=== PATIENT | male | born 1980 | race Caucasian/White ===

== ENCOUNTER 2020-12-30 08:14 | Outpatient (CLI) | payer OTHER, SELFPAY ==
[2020-12-30 08:56] LABS: Alanine Aminotransferase 22 U/L (4-50); Albumin Level 4.5 g/dL (3.5-5.1); Alkaline Phosphatase 43 U/L (38-126); Anion Gap 6 mmol/L (8-16); Aspartate Amino Transferase 23 U/L (17-59); Bilirubin,Total 0.6 mg/dL (0.2-1.3); Blood Urea Nitrogen 16 mg/dL (9-20); Calcium 9.3 mg/dL (8.4-10.2); Carbon Dioxide 31 mmol/L (22-30); Chloride 104 mmol/L (98-107); Cholesterol 185 mg/dL (0-200); Estimated Glomerular Filt Rate > 60; Glucose 95 mg/dL (75-110); HDL Direct 46 mg/dL; Potassium 4.1 mmol/L (3.4-5.0); Sodium 141 mmol/L (137-145); Triglycerides 137 mg/dL (<150)
[2020-12-30 09:05] LABS: LDL Cholesterol Direct 112 mg/dL
== END 2020-12-30 08:15 | disposition home or self-care (01) ==
PROVIDERS: PCP Internal Medicine; Visit Provider Internal Medicine
DX: R79.89 Other specified abnormal findings of blood chemistry (principal); Z13.220 Encounter for screening for lipoid disorders; I10 Essential (primary) hypertension
CPT/HCPCS: 36415; 80053; 80061

== ENCOUNTER 2021-07-21 07:51 | Outpatient (CLI) | payer OTHER, SELFPAY ==
[2021-07-21 08:39] LABS: Anion Gap 7 mmol/L (8-16); Blood Urea Nitrogen 15 mg/dL (9-20); Carbon Dioxide 27 mmol/L (22-30); Chloride 106 mmol/L (98-107); Cholesterol 207 mg/dL (0-200); Estimated Glomerular Filt Rate > 60; Glucose 105 mg/dL (65-110); HDL Direct 51 mg/dL; Potassium 4.6 mmol/L (3.4-5.0); Sodium 140 mmol/L (137-145); Triglycerides 142 mg/dL (<150); Uric Acid 7.4 mg/dL (3.5-8.5)
[2021-07-21 08:44] LABS: LDL Cholesterol Direct 123 mg/dL
== END 2021-07-21 07:52 | disposition home or self-care (01) ==
LOC: ANHLAB 07:53
PROVIDERS: PCP Internal Medicine; Visit Provider Nurse Practitioner
DX: I10 Essential (primary) hypertension (principal); Z13.220 Encounter for screening for lipoid disorders; Z87.39 Personal history of other diseases of the musculoskeletal system and connective tissue
CPT/HCPCS: 36415; 80048; 80061; 84550

== ENCOUNTER 2021-09-25 09:08 | Outpatient (CLI) | payer OTHER, SELFPAY ==
--- NOTE | 2021-09-25 11:00 | NEURO_ITS ---
Impression: # Complains of numbness of lower extremities. # Normal nerve conduction study. # Normal needle/EMG exam. # Clinical correlation recommended. Nerve Conduction Studies Anti Sensory Summary Table Stim Site NR Peak (ms) P-T Amp (?V) Site1 Site2 Delta-P (ms) Dist (cm) Kang (m/s) Left Sup Fibular Anti Sensory (Ant Lat Mall) 14 cm 3.0 20.0 14 cm Ant Lat Mall 3.0 16.0 53 Right Sup Fibular Anti Sensory (Ant Lat Mall) 14 cm 3.4 13.5 14 cm Ant Lat Mall 3.4 16.0 47 Left Sural Anti Sensory (Lat Mall) Calf 3.5 23.7 Calf Lat Mall 3.5 16.0 46 Right Sural Anti Sensory (Lat Mall) Calf 3.9 15.9 Calf Lat Mall 3.9 16.0 41 Motor Summary Table Stim Site NR Onset (ms) O-P Amp (mV) Site1 Site2 Delta-0 (ms) Dist (cm) Kang (m/s) Left Peroneal Motor (Vastus Med) Ankle 4.4 3.0 Popit Ankle 9.4 45.0 48 Popit 13.8 2.9 Right Peroneal Motor (Vastus Med) Ankle 3.8 3.8 Popit Ankle 8.2 38.0 46 Popit 12.0 3.3 Left Tibial Motor (Abd Munoz Brev) Ankle 4.4 5.5 Knee Ankle 10.1 46.0 46 Knee 14.5 4.5 Right Tibial Motor (Abd Munoz Brev) Ankle 4.4 4.6 Knee Ankle 8.9 44.0 49 Knee 13.3 2.4 F Wave Studies NR F-Lat (ms) L-R F-Lat (ms) Left Peroneal (Mrkrs) (EDB) 54.15 0.37 Right Peroneal (Mrkrs) (EDB) 53.78 0.37 Left Tibial (Mrkrs) (Abd Hallucis) 53.37 0.71 Right Tibial (Mrkrs) (Abd Hallucis) 54.08 0.71 EMG Side Muscle Nerve Root Ins Act Fibs Amp Dur Recrt Comment Right AntTibialis Dp Br Fibular L4-5 Nml Nml Nml Nml Nml Right Gastroc Tibial S1-2 Nml Nml Nml Nml Nml Right Fibularis Long Sup Br Fibular L5-S1 Nml Nml Nml Nml Nml Right Flex Dig Long Tibial L5-S2 Nml Nml Nml Nml Nml Right Ext Dig Brev Dp Br Fibular L5, S1 Nml Nml Nml Nml Nml Left AntTibialis Dp Br Fibular L4-5 Nml Nml Nml Nml Nml Left Gastroc Tibial S1-2 Nml Nml Nml Nml Nml Left Fibularis Long Sup Br Fibular L5-S1 Nml Nml Nml Nml Nml Left Flex Dig Long Tibial L5-S2 Nml Nml Nml Nml Nml Left Ext Dig Brev Dp Br Fibular L5, S1 Nml Nml Nml Nml Nml MTDD
== END 2021-09-25 09:09 | disposition home or self-care (01) ==
LOC: ANHNEURO 09:09
PROVIDERS: PCP Internal Medicine; Visit Provider Internal Medicine
DX: R20.2 Paresthesia of skin (principal)
CPT/HCPCS: 95886; 95910

== ENCOUNTER 2021-10-10 15:36 | Emergency (ER) | payer OTHER, SELFPAY ==
--- NOTE | ~2021-10-10 | CT_ITS ---
EXAMINATION: CT abdomen pelvis w con INDICATION: Left flank pain TECHNIQUE: Computed tomographic images of the abdomen and pelvis were obtained after the administrati on of 100 cc of Omnipaque 350 intravenous contrast. The dose-length product (DLP) was 1687.29 mGy-cm. Automated exposure control and iterative reconstruction technique were employed. COMPARISON: 11/06/2018 FINDINGS: Minimal dependent atelectasis is present in the lung bases. The heart size is normal. Surgi sha changes in the stomach likely reflect gastric sleeve surgery. The gallbladder is surgically absen t. The liver, spleen, pancreas, and adrenal glands are normal. There is a nonobstructing 1 mm stone o f the right kidney lower pole. A 5 mm fat attenuation lesion of the left kidney lower pole is consist ent with an angiomyolipoma. No pathologically enlarged abdominal or pelvic lymph nodes are identified . There is no free intraperitoneal gas or evidence of bowel obstruction. The appendix is normal. Ther e are bilateral inguinal hernias containing fat. There is mild lumbar spondylosis. IMPRESSION: 1. No CT correlate for the patient's symptoms. Reviewed, dictated and finalized at location F. RGLASS TECHNICIAN
[2021-10-10 15:38] VITALS: BP 148/112; PULSE 81; RESP 18; TEMP 36.9; O2SAT 100
[2021-10-10 18:04] VITALS: BP 146/90; PULSE 78; RESP 20; O2SAT 99
[2021-10-10] MEDS: ONDANSETRON INJ 4 MG/2 ML VIAL IV PUSH (18:33)
[2021-10-10] MEDS: SODIUM CHLORIDE 0.9% IV 1,000 ML 999 ML IV CONT (18:33)
[2021-10-10 18:44] LABS: Basophils Percent Auto 0.5 % (0.2-1.2); Eosinophils Absolute Auto 0.1 K/mm3 (0-0.3); Eosinophils Percent Auto 1.6 % (0-4.4); Hematocrit 47.7 % (42.0-52.0); Hemoglobin 15.9 g/dL (14.0-18.0); Immature Granulocyte Absolute 0.01 K/mm3 (0.00-0.031); Immature Granulocyte Percent A 0.1 % (0-0.5); Lymphocytes Absolute Auto 3.97 K/mm3 (0.9-3.2); Lymphocytes Percent Auto 46.2 % (18.3-44.2); Mean Corpuscular HGB Conc 33.3 g/dl (32-36); Mean Corpuscular Hemoglobin 29.1 pg (26-34); Mean Corpuscular Volume 87.4 fl (80-100); Mean Platelet Volume 8.8 fl (7.4-10.4); Monocytes Absolute Auto 0.6 K/mm3 (0.1-0.6); Monocytes Percent Auto 7.4 % (2.6-8.5); Neutrophils Absolute Auto 3.8 K/mm3 (1.3-6.7); Neutrophils Percent Auto 44.2 % (45.5-73.1); Platelet Count Result 285 k/mm3 (150-375); Red Blood Count 5.46 M/mm3 (4.6-6.20); Red Cell Distribution Width 12.3 % (11.5-14.5); White Blood Count 8.6 K/mm3 (4.5-10.0)
[2021-10-10 18:46] LABS: Add Urine Microscopic? NO; Appearance Urine Clear (Clear); Bilirubin Urine Negative (Negative); Blood Urine Negative (Negative); Color Urine Yellow (Yellow); Glucose Urine UA Negative (Negative); Ketones Urine Negative (Negative); Leukocyte Esterase Ur Negative LEU/UL (Negative); Nitrate Urine Negative (Negative); Protein Urine Negative (Negative); Specific Grav Ur 1.016 (1.001-1.035); Urobilinogen Urine Negative mg/dL (<2.0)
[2021-10-10 18:58] LABS: Alanine Aminotransferase 24 U/L (4-50); Albumin Level 4.6 g/dL (3.5-5.1); Alkaline Phosphatase 45 U/L (38-126); Anion Gap 11 mmol/L (8-16); Aspartate Amino Transferase 27 U/L (17-59); Bilirubin,Total 0.7 mg/dL (0.2-1.3); Blood Urea Nitrogen 15 mg/dL (9-20); Calcium 9.6 mg/dL (8.4-10.2); Carbon Dioxide 27 mmol/L (22-30); Chloride 102 mmol/L (98-107); Estimated Glomerular Filt Rate > 60; Glucose 97 mg/dL (65-110); Lipase 137 U/L (23-300); Potassium 4.4 mmol/L (3.4-5.0); Sodium 140 mmol/L (137-145)
[2021-10-10 19:17] LABS: Lactic Acid Reflex 0.9 mmol/L (0.7-2.1)
--- NOTE | 2021-10-10 19:46 | ED.GENADULT ---
HPI - General Adult General Chief complaint: Back Pain/Injury Stated complaint: back and abd pain Time Seen by Provider: 10/10/21 18:15 History of Present Illness HPI narrative: Patient 41-year-old gentleman who presents the emergency department with chief complaint of left flank pain. Patient reports that he has been having an aching pain in his left flank that radiates to his left lower quadrant. The patient states that its not improved by anything denies vomiting denies diarrhea denies blood in his stool patient reports he talked to his brother who recommended that he come to the emergency department for evaluation. Related Data Home Medications Medication Instructions Recorded Confirmed colchicine 0.6 mg tablet 0.6 mg PO DAILY PRN 01/06/21 07/28/21 Allergies Allergy/AdvReac Type Severity Reaction Status Date / Time No Known Allergies Allergy Verified 10/10/21 15:38 Review of Systems Review of Systems: A 10 system review of systems was completed on the patient and is negative except for what is stated in the HPI. Nursing and ancillary documentation was reviewed. [facility] Past Medical History Medical History Calculus of gallbladder with acute cholecystitis without obstruction Dizziness Elevated LFTs Headache Hx of gout Injury of right elbow Injury of right shoulder Migraine Numbness Painful joint Vision changes Family History Family History Mother Lupus Sibling Asthma Hypertension Grandparent Pancreatic adenoma Social History Social History Smoking status: Never smoker Second hand tobacco smoke exposure: No Alcohol intake: current Alcohol use details: Social Substance use: never Substance use type: does not use Exam Narrative: GENERAL: Well-appearing, well-nourished, and in no acute distress. HEAD: Normocephalic, atraumatic. EYES: PERRLA and EOMI. ENT: Nares clear, no rhinorrhea or epistaxis. Mucous membranes moist. NECK: Supple. CHEST: Clear to auscultation. No respiratory distress. HEART: Regular rate and rhythm. No murmur heard. Normal peripheral pulses. ABDOMEN: Soft, nontender, nondistended, normal active bowel sounds. EXTREMITIES: Normal range of motion. No edema. SKIN: Warm, dry, no rash. NEURO: No focal deficits. Alert and oriented x3. PSYCH: Normal mood and affect. Course Vital Signs Vital signs: Vital Signs Temperature 36.9 C 10/10/21 15:38 Pulse Rate 81 10/10/21 15:38 Respiratory Rate 18 10/10/21 15:38 Blood Pressure 148/112 H 10/10/21 15:38 Pulse Oximetry 100 10/10/21 15:38 Temperature 36.9 C 10/10/21 15:38 Pulse Rate 78 10/10/21 18:04 Respiratory Rate 20 10/10/21 18:04 Blood Pressure 146/90 H 10/10/21 18:04 Pulse Oximetry 99 10/10/21 18:04 Medical Decision Making Vital Signs Vital Signs: Vital Signs Temperature 36.9 C 10/10/21 15:38 Pulse Rate 81 10/10/21 15:38 Respiratory Rate 18 10/10/21 15:38 Blood Pressure 148/112 H 10/10/21 15:38 Pulse Oximetry 100 10/10/21 15:38 Temperature 36.9 C 10/10/21 15:38 Pulse Rate 78 10/10/21 18:04 Respiratory Rate 20 10/10/21 18:04 Blood Pressure 146/90 H 10/10/21 18:04 Pulse Oximetry 99 10/10/21 18:04 Lab Data Result diagrams: 10/10/21 18:36 10/10/21 18:36 Labs: Lab Results 10/10/21 10/10/21 10/10/21 Range/Units 18:36 18:36 18:36 WBC 8.6 (4.5-10.0) K/mm3 RBC 5.46 (4.6-6.20) M/mm3 Hgb 15.9 (14.0-18.0) g/dL Hct 47.7 (42.0-52.0) % MCV 87.4 (80-100) fl MCH 29.1 (26-34) pg MCHC 33.3 (32-36) g/dl RDW 12.3 (11.5-14.5) % Plt Count 285 (150-375) k/mm3 MPV 8.8 (7.4-10.4) fl Immature Gran % (Auto) 0.1 (0-0.5) % Neut % (Auto) 44.2 L (45.5-73.1) % Lymph % (Auto)
[2021-10-10 20:03] VITALS: BP 122/78; PULSE 80; RESP 18; O2SAT 99
== END 2021-10-10 20:04 | disposition home or self-care (01) ==
PROVIDERS: Emergency Provider Emergency Medicine; PCP Internal Medicine
DX: R10.32 Left lower quadrant pain (principal)
CPT/HCPCS: 36415; 74177; 80053; 81003; 83605; 83690; 85025; 96361; 96374; 99284; J2405; J7030; Q9967

== ENCOUNTER 2022-07-23 12:10 | Outpatient (CLI) | payer OTHER, SELFPAY ==
[2022-07-23 12:59] LABS: Alanine Aminotransferase 25 U/L (6-50); Albumin Level 4.3 g/dL (3.5-5.1); Alkaline Phosphatase 41 U/L (38-126); Anion Gap 11 mmol/L (8-16); Aspartate Amino Transferase 27 U/L (17-59); Bilirubin,Total 0.6 mg/dL (0.2-1.3); Blood Urea Nitrogen 19 mg/dL (9-20); Calcium 8.9 mg/dL (8.4-10.2); Carbon Dioxide 27 mmol/L (22-30); Chloride 100 mmol/L (98-107); Cholesterol 189 mg/dL (0-200); Estimated Glomerular Filt Rate > 60; Glucose 92 mg/dL (65-110); HDL Direct 35 mg/dL; Potassium 3.7 mmol/L (3.4-5.0); Sodium 138 mmol/L (137-145); Triglycerides 85 mg/dL (<150); Uric Acid 7.3 mg/dL (3.5-8.5)
[2022-07-23 13:10] LABS: LDL Cholesterol Direct 123 mg/dL
== END 2022-07-23 12:11 | disposition home or self-care (01) ==
LOC: ANHLAB 12:12
PROVIDERS: PCP Internal Medicine; Visit Provider Internal Medicine
DX: E78.5 Hyperlipidemia, unspecified (principal); I10 Essential (primary) hypertension; M10.9 Gout, unspecified
CPT/HCPCS: 36415; 80053; 80061; 84550

== ENCOUNTER 2022-08-06 12:23 | Outpatient (CLI) | payer OTHER, SELFPAY ==
[2022-08-06 12:44] LABS: Basophils Absolute Auto 0.1 K/mm3 (0.0-0.1); Basophils Percent Auto 0.6 % (0.2-1.2); Eosinophils Absolute Auto 0.1 K/mm3 (0-0.3); Eosinophils Percent Auto 1.5 % (0-4.4); Hematocrit 49.5 % (42.0-52.0); Hemoglobin 16.3 g/dL (14.0-18.0); Immature Granulocyte Absolute 0.03 K/mm3 (0.00-0.031); Immature Granulocyte Percent A 0.3 % (0-0.5); Lymphocytes Absolute Auto 3.34 K/mm3 (0.9-3.2); Lymphocytes Percent Auto 34.8 % (18.3-44.2); Mean Corpuscular HGB Conc 32.9 g/dl (32-36); Mean Corpuscular Volume 87.9 fl (80-100); Mean Platelet Volume 8.8 fl (7.4-10.4); Monocytes Absolute Auto 0.9 K/mm3 (0.1-0.6); Monocytes Percent Auto 9.2 % (2.6-8.5); Neutrophils Absolute Auto 5.2 K/mm3 (1.3-6.7); Neutrophils Percent Auto 53.6 % (45.5-73.1); Platelet Count Result 316 k/mm3 (150-375); Red Blood Count 5.63 M/mm3 (4.6-6.20); Red Cell Distribution Width 13.5 % (11.5-14.5); White Blood Count 9.6 K/mm3 (4.5-10.0)
[2022-08-06 12:52] LABS: Appearance Urine Slightly Cloudy (Clear); Bilirubin Urine Negative (Negative); Blood Urine Negative (Negative); Color Urine Yellow (Yellow); Glucose Urine UA Negative (Negative); Ketones Urine Negative (Negative); Leukocyte Esterase Ur Negative LEU/UL (Negative); Nitrate Urine Negative (Negative); Protein Urine Negative (Negative); Specific Grav Ur 1.025 (1.001-1.035); Urobilinogen Urine 0.2 mg/dL (<2.0)
[2022-08-06 13:06] LABS: Add Urine Microscopic? NO
[2022-08-06 13:16] LABS: Erythrocyte Sedimentation Rate 1 mm/hr (0-20)
[2022-08-06 13:33] LABS: Vitamin D 25 Hydroxy 30.1 ng/mL
[2022-08-06 13:48] LABS: Hepatitis B Surface Antigen Negative (Negative)
[2022-08-06 13:54] LABS: HAV RESULT Negative (Negative); Hepatitis B Core IgM Result Negative (Negative)
[2022-08-06 14:05] LABS: Hepatitis C Virus Antibody Negative (Negative)
[2022-08-10 06:26] LABS: HIV DNA PCR (Qual) Not Detected (Not Detected)
== END 2022-08-06 12:24 | disposition home or self-care (01) ==
PROVIDERS: PCP Internal Medicine; Visit Provider Nurse Practitioner
DX: Z01.818 Encounter for other preprocedural examination (principal); E55.9 Vitamin D deficiency, unspecified
CPT/HCPCS: 36415; 80074; 81003; 82306; 85025; 85652; 87535

== ENCOUNTER 2022-10-29 14:52 | Outpatient (CLI) | payer OTHER, SELFPAY ==
[2022-10-29 15:29] LABS: Basophils Absolute Auto 0.1 K/mm3 (0.0-0.1); Basophils Percent Auto 0.5 % (0.2-1.2); Eosinophils Absolute Auto 0.1 K/mm3 (0-0.3); Eosinophils Percent Auto 1.3 % (0-4.4); Hematocrit 51.3 % (42.0-52.0); Hemoglobin 16.6 g/dL (14.0-18.0); Immature Granulocyte Absolute 0.03 K/mm3 (0.00-0.031); Immature Granulocyte Percent A 0.3 % (0-0.5); Lymphocytes Absolute Auto 3.53 K/mm3 (0.9-3.2); Lymphocytes Percent Auto 31.9 % (18.3-44.2); Mean Corpuscular HGB Conc 32.4 g/dl (32-36); Mean Corpuscular Hemoglobin 27.7 pg (26-34); Mean Corpuscular Volume 85.6 fl (80-100); Monocytes Absolute Auto 0.9 K/mm3 (0.1-0.6); Neutrophils Absolute Auto 6.4 K/mm3 (1.3-6.7); Platelet Count Result 308 k/mm3 (150-375); Red Blood Count 5.99 M/mm3 (4.6-6.20); Red Cell Distribution Width 13.1 % (11.5-14.5); White Blood Count 11.1 K/mm3 (4.5-10.0)
[2022-10-29 15:33] LABS: Appearance Urine Clear (Clear); Bilirubin Urine Negative (Negative); Blood Urine Negative (Negative); Color Urine Yellow (Yellow); Glucose Urine UA Negative (Negative); Ketones Urine Negative (Negative); Leukocyte Esterase Ur Negative LEU/UL (NEGATIVE); Nitrate Urine Negative (Negative); Protein Urine Negative (Negative); Urobilinogen Urine 0.2 mg/dL (<2.0)
[2022-10-29 15:34] LABS: Alanine Aminotransferase 29 U/L (6-50); Albumin Level 4.5 g/dL (3.5-5.1); Alkaline Phosphatase 40 U/L (38-126); Anion Gap 6 mmol/L (8-16); Aspartate Amino Transferase 27 U/L (17-59); Bilirubin,Total 0.5 mg/dL (0.2-1.3); Blood Urea Nitrogen 29 mg/dL (9-20); Calcium 8.7 mg/dL (8.4-10.2); Carbon Dioxide 32 mmol/L (22-30); Chloride 103 mmol/L (98-107); Estimated Glomerular Filt Rate > 60; Glucose 94 mg/dL (65-110); Sodium 141 mmol/L (137-145)
[2022-10-29 15:38] LABS: Add Urine Microscopic? NO
== END 2022-10-29 14:53 | disposition home or self-care (01) ==
LOC: ANHLAB 14:54
PROVIDERS: PCP Internal Medicine; Visit Provider Nurse Practitioner Family
DX: R10.9 Unspecified abdominal pain (principal)
CPT/HCPCS: 36415; 80053; 81003; 85025

== ENCOUNTER 2022-11-02 15:52 | Outpatient (CLI) | payer BC, OTHER, SELFPAY ==
--- NOTE | ~2022-11-02 | CT_ITS ---
EXAMINATION: CT abdomen pelvis wo con DATE: 11/02/2022 16:13 INDICATION: Left flank pain TECHNIQUE: Computed tomography (CT) of the abdomen and pelvis was performed without intravenous contr ast. The dose-length product (DLP) was 1367.23 mGy-cm. Automated exposure control and iterative recon struction technique were employed. COMPARISON: 10/10/2021 FINDINGS: Minimal dependent atelectasis is present in the lung bases. The heart size is normal. There are surgical changes in the stomach, likely reflecting gastric sleeve surgery. The gallbladder is junior rgically absent. The liver, spleen, pancreas, and adrenal glands are normal. There is a 2 mm nonobstr ucting stone of the right kidney. There is a stable 5 mm fat attenuation lesion of the left kidney lo wer pole, consistent with an angiomyolipoma. No stones are present in the ureters or bladder. No hydr onephrosis or hydroureter. No pathologically enlarged abdominal or pelvic lymph nodes are identified. No free intraperitoneal gas or evidence of bowel obstruction. There are bilateral fat-containing ing uinal hernias. The appendix is normal. There is mild lumbar spondylosis. IMPRESSION: 1. No CT correlate for the patient's symptoms. Reviewed, dictated and finalized at location B. RELL BLOWER
== END 2022-11-02 15:53 | disposition home or self-care (01) ==
PROVIDERS: PCP Internal Medicine; Visit Provider Nurse Practitioner Family
DX: R10.9 Unspecified abdominal pain (principal)
CPT/HCPCS: 74176

== ENCOUNTER 2023-08-06 08:56 | Outpatient (CLI) | payer BC, OTHER, SELFPAY ==
--- NOTE | 2023-08-06 09:00 | ECG_ITS ---
Measurements Intervals [place] Rate: 74 P: 20 MN: 140 QRS: -10 QRSD: 101 T: -3 QT: 342 QTc: 380 Interpretive Statements SINUS RHYTHM INCOMPLETE RIGHT BUNDLE BRANCH BLOCK VOLTAGE CRITERIA FOR LVH POOR R WAVE PROGRESSION, ANTERIOR LEADS BORDERLINE T WAVE ABNORMALITY- INFERIOR LEADS BASELINE ARTIFACT- I, II, III BORDERLINE ECG NO PREVIOUS ECG AVAILABLE FOR COMPARISON Electronically Signed On 08-06-2023 9:46:58 ROUTE VENDING MACHINE SERVICER by Walker Pepper D.O.
== END 2023-08-06 08:57 | disposition home or self-care (01) ==
LOC: ANHSURGERY 09:02
PROVIDERS: PCP Nurse Practitioner; Visit Provider Surgery
DX: Z01.812 Encounter for preprocedural laboratory examination (principal); Z01.810 Encounter for preprocedural cardiovascular examination; K40.20 Bilateral inguinal hernia, without obstruction or gangrene, not specified as recurrent; I45.10 Unspecified right bundle-branch block
CPT/HCPCS: 36415; 86850; 86900; 86901; 93005

== ENCOUNTER 2023-08-11 03:37 | Day surgery (SDC) | payer BC, OTHER, SELFPAY ==
[2023-08-05 09:25] VITALS: BMI 30.2
--- NOTE | 2023-08-05 09:30 | PC.NURSE ---
Report to the Outpatient Waiting Room, entrance under the green pavilion located off [facility], at time 11:00 on date 08/11/23. Planned Procedure Time: 1:00. Time changes happen often and if your time is changed the preop area will call you the afternoon before. - You and your visitor will be asked to self-screen and do not enter if you have any COVID symptoms. - A mask is optional within the hospital at this time. Patients may have clear liquids (water, carbonated beverages, clear teas, apple juice) until 3 hours prior to surgery (10:00) with a maximum of 20 ounces. - No food from midnight until time of surgery Take the following medications with a SIP of water the morning of surgery: AMLODIPINE DO NOT STOP ANY OF YOUR OTHER PRESCRIPTION MEDICATIONS PRIOR TO SURGERY ?EXCEPT THE FOLLOWING Medications to discontinue per physician: N/A Date to take last dose: N/A Please no make-up, nail armenian, hairspray, perfume, deodorant, or body powder the day of surgery. No jewelry (including any body piercings) or valuables the day of surgery, leave them at home. Please take a shower or bath the night before, or the morning of, surgery with an antibacterial soap. Wear comfortable, loose fitting clothing. - Jewelry must be removed prior to entering the operating room. Rings and piercings that are not removed may be cut off. - The hospital will not accept responsibility for valuables. - Please leave all valuables, including medications, at home the day of surgery. If you are going home after surgery, a licensed local hazmat driver must drive you home. - NO public transportation without another adult if you receive anesthesia. - We recommend that an adult stay with you for 24 hours following discharge. - We also recommend that you do not drive, make important decision, drink alcoholic beverages, or take any drugs that were not prescribed by your health care provider for at least 24 hours after your discharge time. Follow any additional instructions given to you from your surgeon. If you or anyone in your household have experienced Covid symptoms in the past week, please notify your surgeon or the nurse liaison at the phone number below for possible testing. Telephone instructions given to PT - MO CANCINO and asked if any additional questions and then verbalized understanding. Patient advised to call surgeon office or pre surgery nurse liaison [phone] if any additional questions.
--- NOTE | 2023-08-10 12:34 | PM.SD2 ---
Same Day Admit/Disch: HPI History of Present Illness Chief complaint: Left groin pain Narrative: Bakari Chiang is a 43 year old male who started noticing left groin pain back in November or December of this year. This pain is worse when he strains such as having a bowel movement. He noticed also a left groin bulge. He had a CT scan done which showed bilateral fat containing inguinal hernias. I saw him in the office and he does have bilateral inguinal hernias by exam. After discussion, he is taken to surgery now for robotic laparoscopic bilateral inguinal hernia repair. He has a history of previous laparoscopic cholecystectomy. He also has a history of previous laparoscopic gastric banding after which he lost over 100 lb. [facility] Past Medical History Medical History (Updated 08/11/23 @ 12:42 by Carlos Pratt DO) Calculus of gallbladder with acute cholecystitis without obstruction Dizziness Elevated LFTs Headache Hx of gout Hypertension Injury of right elbow Injury of right shoulder Migraine Numbness Painful joint Vision changes Surgical History Surgical History Hx laparoscopic cholecystectomy 2018 [facility] Hx of laparoscopic gastric banding Family History Family History Mother Lupus Sibling Asthma Hypertension Grandparent Pancreatic adenoma Social History Social History Smoking status: Never smoker Second hand tobacco smoke exposure: No Alcohol intake: current Alcohol use details: RARE Substance use: never Substance use type: does not use Lack of Transportation: No Lack of Food: Never True Current Housing: I Have Housing Concerned About Future Housing: No Difficulty Paying Gas/Electric Bills: No Difficulty Paying for Meds: No Currently Unemployed: No Education: Bachelor's Degree Difficulty w/ Childcare or Family Care: No Living arrangements: with family Spiritual care concerns: No Same Day Admit/Disch: Med Pre-admit Medications Home Medications Medication Instructions Recorded Confirmed Type colchicine 0.6 mg tablet 0.6 mg PO DAILY PRN gout 01/06/21 08/05/23 History amlodipine 10 mg tablet 10 mg PO DAILY #90 tabs 10/19/22 08/11/23 Rx ketorolac 10 mg tablet 10 mg PO Q6H 4 days #16 tabs 08/11/23 Rx oxycodone-acetaminophen 5 mg-325 1 - 2 tablet PO Q6H PRN pain #15 08/11/23 Rx mg tablet (Percocet) tabs Review of Systems Review of Systems All systems reviewed & are unremarkable except as noted in HPI and below (HPI) Exam Const: General: comfortable, no acute distress, alert and awake HENMT: Head: normocephalic and atraumatic Mouth: Yes Normal oral and palatal mucosa present Eyes: Conjunctivae: conjunctivae normal Pupils: Equal, round and reactive pupils present EOM: EOMs intact bilaterally Neck: Neck: normal visual inspection, no lymphadenopathy and nontender Resp: Effort & Inspection: normal respiratory effort Auscultation: clear to auscultation bilaterally Cardio: Rate: regular rate Rhythm: regular rhythm Heart sounds: no gallops, no murmurs and no rubs GI: Inspection: non-distended GI Palp: Yes Soft to palpation, No Tenderness to palpation present (GI), No Hepatomegaly present and No Splenomegaly present : Male General Exam: Yes hernia (Left groin bulge, bilateral inguinal hernias, pulse with cough) Penis: Yes normal penis Scrotum: scrotum normal Testes: Testes normal Skin: Lesions: no lesions Rashes: no rashes Neuro: General: no focal motor deficits and CN's II-XI intact bilaterally Cranial nerves: Yes Equal, round and reactive pupils present, Yes Bilaterally intact EOM present, Yes facial symmetry and Yes Midline tongue present Speech: normal speech Motor exam (neuro): 5/5 motor strength present throughout and Motor abnormalities not present Extrem: General: no club
[2023-08-11] VITALS (8 sets, daily range): BP systolic 120–150; BP diastolic 85–99; PULSE 80–94; RESP 15–19; TEMP 36.8; O2SAT 94–100
[2023-08-11] MEDS: ACETAMINOPHEN 500 MG TABLET 1000 MG PO (11:31)
[2023-08-11] MEDS: LACTATED RINGERS 1,000 ML 30 ML IV CONT ×3 (11:40→18:26)
[2023-08-11] MEDS: KETOROLAC 15 MG/ML VIAL (*BKC) IV PUSH (11:42)
--- NOTE | 2023-08-11 12:21 | WPDHPUPDATE1 ---
History and Physical Update Update Date/Time: 08/11/23 12:21 History and Physical has been reviewed, including an updated exam of the patient. There are NO changes in the patient's condition. Risks, benefits, and alternatives have been discussed and questions answered. Patient agrees to proceed with procedure.
--- NOTE | 2023-08-11 12:41 | P.PNAN_ITS ---
Anes - Initial Pre Proc Eval Procedure: Operation Date: 08/11/23 13:00 Proposed Procedures p Robotic Laparoscopic Bilateral Inguinal Hernia Repair with Mesh - Isaiah Mccain MD Date/Time: 08/11/23 12:41 Surgeon: Isaiah Mccain MD Pre Op Diagnosis: Left groin pain Patient Data Age: 43 Gender: M Height: 1.88 m Weight: 111.1 kg Last Vital Signs Temp 36.8 C 08/11/23 11:20 Pulse 80 08/11/23 11:20 Resp 16 08/11/23 11:20 BP 150/99 H 08/11/23 11:20 Pulse Ox 100 08/11/23 11:20 O2 Del Method Room Air 08/11/23 11:20 Allergies Allergy/AdvReac Type Severity Reaction Status Date / Time No Known Allergies Allergy Verified 08/05/23 09:25 Home Medications Medication Instructions Recorded Confirmed Type colchicine 0.6 mg tablet 0.6 mg PO DAILY PRN gout 01/06/21 08/05/23 History amlodipine 10 mg tablet 10 mg PO DAILY #90 tabs 10/19/22 08/11/23 Rx Patient hx anesthesia problems: none Family hx anesthesia problems: none Results Review: All pre-operative results and documents have been reviewed as part of the pre- operative evaluation. [facility] Past Medical History Medical History (Updated 08/11/23 @ 12:42 by Carlos Pratt DO) Calculus of gallbladder with acute cholecystitis without obstruction Dizziness Elevated LFTs Headache Hx of gout Hypertension Injury of right elbow Injury of right shoulder Migraine Numbness Painful joint Vision changes Surgical History Surgical History Hx laparoscopic cholecystectomy 2018 [facility] Hx of laparoscopic gastric banding Family History Family History Mother Lupus Sibling Asthma Hypertension Grandparent Pancreatic adenoma Social History Social History Smoking status: Never smoker Second hand tobacco smoke exposure: No Alcohol intake: current Alcohol use details: RARE Substance use: never Substance use type: does not use Lack of Transportation: No Lack of Food: Never True Current Housing: I Have Housing Concerned About Future Housing: No Difficulty Paying Gas/Electric Bills: No Difficulty Paying for Meds: No Currently Unemployed: No Education: Bachelor's Degree Difficulty w/ Childcare or Family Care: No Living arrangements: with family Spiritual care concerns: No Anes - Eval Final PreProcedure Day of Procedure 08/11/23 12:41 Patient weight: obese Heart: regular rate and rhythm Lungs: clear to auscultation Airway: Mallampati scale class II Neurological: alert and oriented Last oral intake: >/= 8 hours ASA classification: III Emergent: no Anesthetic plan: proceed Anesthesia type and monitoring: general ETT and standard monitoring Results Review: All pre-operative results and documents have been reviewed as part of the pre- operative evaluation. Informed Consent: The patient's anesthetic plan and its attendant risks and benefits were discussed with the patient/family/POA. Questions were solicited and answers provided to the satisfaction of the patient/family/POA.
[2023-08-11] MEDS: ceFAZolin 2 GM/D5W 50 ML 2 GM/50 ML BAG IVPB (13:23)
[2023-08-11] MEDS: BUPIVACAINE/EPINEPHRINE 0.5% 50 ML VIAL 30 ML INFILTRATE (13:54)
[2023-08-11] MEDS: ceFAZolin SODIUM 1 GM VIAL IV PUSH (17:16)
--- NOTE | 2023-08-11 17:49 | W.PM.PROC2 ---
Procedure Note - Detailed Date of Procedure 08/11/23 Pre-op Diagnosis Bilateral inguinal hernias Post-op Diagnosis Same Procedure Performed Robotic laparoscopic repair of bilateral inguinal hernias with mesh Surgeon Isaiah Mccain MD Bus Starter Garret LR, Elysia LR Anesthesia General and Local Indications Patient has a large left inguinal hernia that has been painful with exertion. Exam showed he also has a right inguinal hernia. After discussion, he is taken to surgery now for robotic laparoscopic repair of both inguinal hernias with mesh. Findings The left was a larger hernia. And had a lot of lipomatous tissue in the inguinal canal. It was an indirect hernia. The right side was a smaller hernia, also an indirect hernia. No other significant findings were noted. Description of Procedure Patient was taken to the operating room and induced into general anesthesia. The abdomen was prepped and draped. The 3 trocars anticipated to be placed were marked on the skin above the umbilicus. Local was infiltrated into the area each trocar was to be placed. On the left sided trocar made an incision and introduced the varies needle. Saline drop technique was used to assure intraperitoneal location. We insufflated through this varies needle. After adequate insufflation, I swabbed this for a 5 mm applied Medical optical trocar. The right-sided and midline trocar sites were then placed using local anesthesia and under direct visualization. These were 8 mm robotic trocars. I then moved the camera over to the right-sided trocar. The 5 mm port was changed to an 8 mm robotic port. The camera was then brought into the field. Patient was placed in Trendelenburg. The camera was then docked and targeted. The instrument ports were then docked and positioned close to the suprapubic area near both hernias. The surgeon then broke scrub and went to the robotic console. Starting on the patient's left side, a peritoneal flap was created starting laterally and proceeding medially to the median umbilical ligament. This peritoneal flap was developed in the usual fashion. Medially I dissected directly under the rectus abdominis muscle and down to the pubis and Bruno's ligament. I then continued the dissection laterally and then finally moved to the midportion where the hernia was located. I grasped some fatty tissue and reduced it in the hernia sac. There was additional abundant lipomatous tissue that was dissected and removed. The hernia sac itself was dissected from the inguinal canal. I carefully dissected the hernia sac from the cord structures. This was continued until the cord was dissected completely free from the hernia sac and also the peritoneum was dissected well posterior to the cord. There was at least 4 cm of inguinal canal dissected free posterior to the lower aspect of the indirect hernia. I continued the dissection medially beyond the midline and down to the pubis. I dissected below the pubis and Bruno's ligament about 2 cm. This appeared to be adequate dissection for the left side. I then turned my attention to the right inguinal area. Similarly I started a flap laterally and continued this medially to the median umbilical ligament. I then dissected the flap from the anterior abdominal wall. Medially I dissected down to the pubis and across to the previous area of dissection on the left side. The pubis and Bruno's ligament were well exposed on the right side. I also dissected about 2 cm posterior to the pubis on the right side. Laterally we dissected well below the pectinate line. The hernia on the right side was also indirect. I reduced the hernia and some accompanying fatty tissue. I dissected the hernia sac and the fatty tissue free from the cord vessels and then dissected the sac and the peritoneum well below the internal ring as had been done on the left side. All looked good. I 1st introduced a 17 x 12 left mid Bard 3DMax a
[2023-08-11] MEDS: HYDROmorphone HCL INJ (*CRX) 1 MG/ML SYR 0.25 MG IV PUSH ×2 (18:12→18:20)
[2023-08-11] MEDS: PROPARACAINE HCL 0.5% 15 ML OPHTH SOLN 1 DROP EACH EYE ×2 (19:09→19:56)
--- NOTE | 2023-08-11 19:13 | SUR.PHASEII ---
1900 PT STATES HE FEELS THERE IS SOMETHING IN HIS RIGHT EYE LATERALLY. NO THING NOTED, EYE FLUSHED WITH 100 SALINE. PT STATES NO REFLIEF.
[2023-08-11] MEDS: ONDANSETRON INJ 4 MG/2 ML VIAL IV PUSH (19:25)
[2023-08-11] MEDS: diphenhydrAMINE HCl INJ 50 MG/ML VIAL 25 MG IV PUSH (20:00)
--- NOTE | 2023-08-11 20:29 | SUR.PHASEII ---
[facility] SUPPORT HAS BEEN IN PLACE SINCE ARRIVING FROM THE OR.
== END 2023-08-11 20:35 | disposition home or self-care (01) ==
PROVIDERS: PCP Nurse Practitioner; Visit Provider Surgery
PROC: 8E0Y4CZ Robotic Assisted Procedure of Lower Extremity, Percutaneous Endoscopic Approach (ICD-10-PCS; CPT 49650; principal; 2023-08-11 13:00)
DX: K40.20 Bilateral inguinal hernia, without obstruction or gangrene, not specified as recurrent (principal); I10 Essential (primary) hypertension; E66.9 Obesity, unspecified; Z68.31 Body mass index [BMI] 31.0-31.9, adult; Z79.891 Long term (current) use of opiate analgesic; Z90.49 Acquired absence of other specified parts of digestive tract; Z80.0 Family history of malignant neoplasm of digestive organs
CPT/HCPCS: 49650; S2900; A9270; C1781; J0690; J1170; J1200; J1885; J2250; J2371; J2405; J2704; J3010; J7120

== ENCOUNTER 2023-08-15 05:12 | Emergency (ER) | payer BC, OTHER, SELFPAY ==
[2023-08-15 05:12] VITALS: BP 145/92; PULSE 96; RESP 14; TEMP 36.8; O2SAT 98
--- NOTE | 2023-08-15 05:49 | PC.NURSE ---
Pt approached triage desk and states he no longer want to be seen, states I just needed a prescription refill . Pt ambulated out of ED with steady gait, no obvious distress.
== END 2023-08-15 06:33 | disposition left against medical advice (07) ==
LOC: ANHED 05:52
PROVIDERS: PCP Nurse Practitioner
DX: H57.9 Unspecified disorder of eye and adnexa (principal)
CPT/HCPCS: 99199

== ENCOUNTER 2023-08-15 08:43 | Emergency (ER) | payer BC, OTHER, SELFPAY ==
[2023-08-15 08:56] VITALS: BP 146/99; PULSE 88; RESP 16; TEMP 36.2; O2SAT 100
== END 2023-08-15 09:10 | disposition left against medical advice (07) ==
PROVIDERS: PCP Nurse Practitioner
DX: Z53.21 Procedure and treatment not carried out due to patient leaving prior to being seen by health care provider (principal)
CPT/HCPCS: 99199

== ENCOUNTER 2024-04-03 13:36 | Outpatient (CLI) | payer BC, SELFPAY ==
[2024-04-03 14:07] LABS: Alanine Aminotransferase 24 U/L (6-50); Albumin Level 4.4 g/dL (3.5-5.1); Alkaline Phosphatase 38 U/L (38-126); Anion Gap 7 mmol/L (4-12); Aspartate Amino Transferase 29 U/L (17-59); Bilirubin,Total 0.8 mg/dL (0.2-1.3); Blood Urea Nitrogen 9 mg/dL (9-20); Calcium 8.9 mg/dL (8.4-10.2); Carbon Dioxide 32 mmol/L (22-30); Chloride 101 mmol/L (98-107); Cholesterol 207 mg/dL (0-200); Estimated Glomerular Filt Rate > 60; Glucose 98 mg/dL (65-110); HDL Direct 38 mg/dL; Sodium 140 mmol/L (137-145); Triglycerides 110 mg/dL (<150)
[2024-04-03 14:17] LABS: LDL Cholesterol Direct 145 mg/dL
[2024-04-03 14:38] LABS: Prostate Specific Antigen 0.7 ng/mL (< OR = 4.0); Thyroid Stimulating Hormone 0.989 uIU/mL (0.465-4.680)
== END 2024-04-03 13:37 | disposition home or self-care (01) ==
LOC: ANHLAB 13:38
PROVIDERS: PCP Nurse Practitioner; Visit Provider Nurse Practitioner
DX: Z12.5 Encounter for screening for malignant neoplasm of prostate (principal); E78.5 Hyperlipidemia, unspecified; I10 Essential (primary) hypertension; Z12.31 Encounter for screening mammogram for malignant neoplasm of breast
CPT/HCPCS: 36415; 80053; 80061; 84153; 84443; G0103

== ENCOUNTER 2024-06-27 08:57 | Outpatient (CLI) | payer BC, SELFPAY ==
[2024-06-27 09:25] LABS: Cholesterol 198 mg/dL (0-200); HDL Direct 33 mg/dL; Triglycerides 99 mg/dL (<150)
[2024-06-27 09:36] LABS: LDL Cholesterol Direct 119 mg/dL
== END 2024-06-27 08:58 | disposition home or self-care (01) ==
PROVIDERS: PCP Nurse Practitioner; Visit Provider Nurse Practitioner
DX: E78.5 Hyperlipidemia, unspecified (principal)
CPT/HCPCS: 36415; 80061

== ENCOUNTER 2024-10-11 00:56 | Day surgery (SDC) | payer BC, SELFPAY ==
[2024-09-26 10:47] VITALS: BMI 29.5
[2024-10-11 12:18] VITALS: BP 117/88; PULSE 73; RESP 18; TEMP 36.4; O2SAT 99
--- NOTE | 2024-10-11 12:26 | P.PNAN_ITS ---
Anes - Initial Pre Proc Eval Procedure: Operation Date: 10/11/24 13:30 Proposed Procedures p Screening Colonoscopy - Howard Arias MD Date/Time: 10/11/24 12:26 Surgeon: Howard Arias MD Pre Op Diagnosis: screening for malignant neoplasm of colon Patient Data Age: 44 Gender: M Height: 1.88 m Weight: 99.8 kg Last Vital Signs Temp 36.4 C L 10/11/24 12:18 Pulse 73 10/11/24 12:18 Resp 18 10/11/24 12:18 BP 117/88 10/11/24 12:18 Pulse Ox 99 10/11/24 12:18 O2 Del Method Room Air 10/11/24 12:18 Allergies Allergy/AdvReac Type Severity Reaction Status Date / Time No Known Allergies Allergy Verified 10/11/24 12:17 Home Medications ?Medication ?Instructions ?Recorded ?Confirmed ?Type colchicine 0.6 mg capsule 0.6 mg PO DAILY PRN GOUT 12/31/23 09/26/24 History amlodipine 10 mg tablet 10 mg PO DAILY #90 tabs 09/22/24 10/11/24 Rx losartan 100 mg tablet 100 mg PO DAILY #90 tabs 09/28/24 10/11/24 Rx Patient hx anesthesia problems: none Family hx anesthesia problems: none Results Review: All pre-operative results and documents have been reviewed as part of the pre- operative evaluation. [facility] Past Medical History Medical History Hx of gout Elevated LFTs Hypertension Calculus of gallbladder with acute cholecystitis without obstruction Vision changes Numbness Dizziness Painful joint Injury of right elbow Injury of right shoulder Migraine Headache Surgical History Surgical History Hx of inguinal hernia repair Robotic laparoscopic repair of bilateral inguinal hernias with mesh 08/11/[address] [facility] Hx of laparoscopic gastric banding Hx laparoscopic cholecystectomy 2018 [facility] Family History Family History Mother Lupus Sibling Asthma Hypertension Grandparent Pancreatic adenoma Social History Social History Smoking status: Never smoker Second hand tobacco smoke exposure: No Alcohol intake: current Alcohol use details: a few drinks per month Substance use: never Substance use type: does not use Lack of Transportation: No Lack of Food: Never True Current Housing: I Have Housing Concerned About Future Housing: No Difficulty Paying Gas/Electric Bills: No Difficulty Paying for Meds: No Currently Unemployed: No Education: Bachelor's Degree Difficulty w/ Childcare or Family Care: No Living arrangements: with family Spiritual care concerns: No Anes - Eval Final PreProcedure Day of Procedure 10/11/24 12:26 Patient weight: overweight Heart: regular rate and rhythm Lungs: clear to auscultation Airway: Mallampati scale class II Neurological: alert and oriented Last oral intake: >/= 8 hours ASA classification: III Emergent: no Anesthetic plan: proceed Anesthesia type and monitoring: general GIVS and standard monitoring Results Review: All pre-operative results and documents have been reviewed as part of the pre- operative evaluation. Informed Consent: The patient's anesthetic plan and its attendant risks and benefits were discussed with the patient/family/POA. Questions were solicited and answers provided to the satisfaction of the patient/family/POA.
--- NOTE | 2024-10-11 12:28 | PM.HPGS ---
History of Present Illness History of Present Illness Consent: Risks, benefits, and alternatives have been discussed and questions answered. Patient agrees to proceed with procedure. Chief complaint: screening for malignant neoplasm of colon Narrative: Bakari Chiang is a 44 year old male here for first screening colonoscopy Review of Systems Review of Systems: All systems reviewed & are unremarkable except as noted in HPI and below PMFSH Past Medical History Medical History Hx of gout Elevated LFTs Hypertension Calculus of gallbladder with acute cholecystitis without obstruction Vision changes Numbness Dizziness Painful joint Injury of right elbow Injury of right shoulder Migraine Headache Surgical History Surgical History Hx of inguinal hernia repair Robotic laparoscopic repair of bilateral inguinal hernias with mesh 08/11/23 [facility] Hx of laparoscopic gastric banding Hx laparoscopic cholecystectomy [address] [place] [address] Family History Family History Mother Lupus Sibling Asthma Hypertension Grandparent Pancreatic adenoma Social History Social History Smoking status: Never smoker Second hand tobacco smoke exposure: No Alcohol intake: current Alcohol use details: a few drinks per month Substance use: never Substance use type: does not use Lack of Transportation: No Lack of Food: Never True Current Housing: I Have Housing Concerned About Future Housing: No Difficulty Paying Gas/Electric Bills: No Difficulty Paying for Meds: No Currently Unemployed: No Education: Bachelor's Degree Difficulty w/ Childcare or Family Care: No Living arrangements: with family Spiritual care concerns: No Meds Home Medications and Allergies Home Medications ?Medication ?Instructions ?Recorded ?Confirmed ?Type colchicine 0.6 mg capsule 0.6 mg PO DAILY PRN GOUT 12/31/23 09/26/24 History amlodipine 10 mg tablet 10 mg PO DAILY #90 tabs 09/22/24 10/11/24 Rx losartan 100 mg tablet 100 mg PO DAILY #90 tabs 09/28/24 10/11/24 Rx Allergies Allergy/AdvReac Type Severity Reaction Status Date / Time No Known Allergies Allergy Verified 10/11/24 12:17 Vital Signs Vital Signs - 24 hr 10/11/24 12:18 Temperature 97.5 F L Pulse Rate 73 Respiratory Rate 18 Blood Pressure 117/88 Pulse Oximetry 99 Oxygen Delivery Room Air Exam Const: General: comfortable and no acute distress HENMT: Face/Nose/Sinus: Normal nares present Eyes: General: appearance normal, both eyes and all related structures Neck: Neck: no JVD Resp: Auscultation: clear to auscultation bilaterally Cardio: Rate: regular rate Rhythm: regular rhythm GI: Inspection: non-distended GI Palp: Yes Soft to palpation Skin: General skin exam: normal color Neuro: General: gait normal Speech: normal speech Extrem: General: normal to inspection Psych: Mental Status: mental status grossly normal Assessment and Plan Assessment and plan (1) Screening for colon cancer: Code(s): Z12.11 - Encounter for screening for malignant neoplasm of colon Status: Acute Assessment and Plan: colonoscopy
[2024-10-11] MEDS: LACTATED RINGERS 1,000 ML 150 ML IV CONT (12:32)
[2024-10-11 12:46] VITALS: BP 101/67; PULSE 69; RESP 18; O2SAT 96
[2024-10-11 12:56] VITALS: BP 108/69; PULSE 73; RESP 16; O2SAT 100
[2024-10-11 13:06] VITALS: BP 115/84; PULSE 63; RESP 16; O2SAT 100
--- OUTSIDE RECORDS SUMMARY | 2024-10-12 20:59 | XMS_ITS | Clinical Summary ---
Author Organization [facility] at [facility] Address [address] [place] [address] Care Team Providers Care Meal Temperer Name Role Phone Cheko Chapin DO Primary Care Provider [phone] Allergies No known active allergies Medications amLODIPine (NORVASC) 10 mg tablet 1 tablet (10 mg total) 07/22/2024 Active losartan (COZAAR) 100 mg tablet 1 tablet (100 mg total) 2024 Active Active Problems Problem Noted Date Diagnosed Date Varicose veins of both lower extremities 024 Assessment & Plan (09/27/2024 9:56 AM MARKETING SEGMENT MANAGER): 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 On exam these varicosities are quite large and symptomatic. Risks benefits alternatives to staged left GSV ablation and stab phlebectomies followed by the right lower extremity were discussed. Risks including bleeding, infection, DVT/PE, thermal injury, need further surgery. He wished proceed. Assessment & Plan (08/22/2024 9:51 AM MARKETING SEGMENT MANAGER): Large bulky varicosities bilaterally that are symptomatic and chronic. Patient has been compliant with compression therapy for greater than 3 months without resolution of symptoms. We will have the patient follow-up in the next few weeks with a venous reflux he is absolutely a candidate for phlebectomies we will check to see if he is a candidate for GSV ablation. Primary hypertension 08/22/2024 Assessment & Plan (09/27/2024 9:58 AM MARKETING SEGMENT MANAGER): Stable continue amlodipine Encounters Date Type Department Care Team Description 10/02/2024 Documentation [facility] Medical [facility] Vascular and Vein Surgery [address] [place] [address] [place] [phone] Smitha Wilde, RN 09/29/2024 Orders Only [facility] Vascular and Vein Surgery [address] [place] [phone] Radha Coronado MD Varicose veins of leg with pain, left (Primary Dx); Varicose veins of leg with pain, right; Varicose veins of both lower extremities with pain 09/29/2024 Telephone [facility] Vascular and Vein Surgery [address] [place] [phone] Smitha Wilde, RN 09/27/2024 9:15 AM MARKETING SEGMENT MANAGER Office Visit [facility] Vascular at [address] [place] [phone] Radha Coronado MD Varicose veins of both lower extremities with pain (Primary Dx); Primary hypertension 09/27/2024 Documentation [facility] Vascular and Vein Surgery [address] [place] [phone] Smitha Wilde, RN 09/05/2024 9:00 AM MARKETING SEGMENT MANAGER Ancillary Procedure [facility] Vascular and Vein Surgery at [address] [place] [address] Symptomatic varicose veins, bilateral 08/21/2024 2:15 PM MARKETING SEGMENT MANAGER Office Visit [facility] Vascular and Vein Surgery [address] [place] [phone] Corinna Billy NP Varicose veins of both lower extremities with pain (Primary Dx); Primary hypertension 08/21/2024 Orders Only [facility] Vascular and Vein Surgery [address] [place] [phone] Radha Coronado MD Symptomatic varicose veins, bilateral (Primary Dx) from Last 3 Months Social History Tobacco Use Types Packs/Day Years Used Date Smoking Tobacco: Unknown Tobacco Cessation:Counseling Given: Not Answered Sex and Gender Information Value Date Recorded Sex Assigned at Not on file Legal Sex Male 9:46 AM MARKETING SEGMENT MANAGER Gender Identity Not on file Sexual Orientation Not on file Obstetrics History Last Filed Vital Signs Vital Sign Reading Time Taken Comments Blood Pressure 118/85 09/27/2024 9:22 AM MARKETING SEGMENT MANAGER Pulse 77 09/27/2024 9:22 AM MARKETING SEGMENT MANAGER Temperature - - Respiratory Rate - - Oxygen Saturation 98% 09/27/2024 9:22 AM MARKETING SEGMENT MANAGER Inhaled Oxygen Concentration - - Weight 102.1 kg (225 lb) 09/27/2024 9:22 AM MARKETING SEGMENT MANAGER Height 188 cm (6' 2 ) 09/27/2024 9:22 AM MARKETING SEGMENT MANAGER Body Mass Index 28.89 09/27/2024 9:22 AM MARKETING SEGMENT MANAGER Plan of Treatment Health Maintenance Due Date Last Done Comments Colon Cancer Screening-Colonoscopy 1978 Depression Screening 1978 Hepatitis C Screening 1978 DTaP/Tdap/Td Vaccine (1 - Tdap) 1989 Hepatitis B Screening 1996 Regular Well Visit/Exam 18-64 1996 Covid-19 Vaccine (3 - 2023-2 5 season) 2024 11/05/2021, 10/15/2021 Influenza Vaccine (#1) 2024 HPV Vaccines Aged Out No longer eligi ble based on patient's age to complete this topic Pneumococcal vaccine <65 Aged Out No longer eligible based on patient's age to complete this topic Procedures Procedure Name Priority Date/Time Associated Diagnosis Comments US VENOUS REFLUX BILATERAL Routine 09/05/2024 10:58 AM MARKETING SEGMENT MANAGER Symptomatic varicose veins, bilateral from Last 3 Months Results * US Venous Reflux Bilateral (09/05/2024 10:58 AM MARKETING SEGMENT MANAGER) Anatomical Region Laterality Modality Vascular Bilateral Ultrasound 09/05/2024 9:11 AM MARKETING SEGMENT MANAGER Narrative 09/06/2024 8:29 AM MARKETING SEGMENT MANAGER Vascular & Vein Surgery [address] [facility] [place] [address] Lower Extremity Venous Reflux Duplex Report Patient Name: MO CANCINO L : 1980 (44y 2m) Study Date: 09/05/2024 9:11:29 AM Gender: M School Bus Driver/Teacher Assistant: TALIA Location: [facility] Ref Provider: RADHA CORONADO ?Quality: Adequate Order Provider: RADHA CORONADO ?? PROCEDURES: Vascular Report: Lower extremity venous valvular insufficiency or reflux evaluation is performed with manual augmentation. Veins evaluated are sapheno-femoral junction, great saphenous, common femoral, femoral, profunda femoral, popliteal, sapheno-popliteal and small saphenous veins bilaterally. Criteria for superficial vein reflux is retrograde blood flow greater than 0.5 seconds in the standing position. ?? INDICATIONS: Left > Right varicose veins. ?? HISTORY: No past pertinent medical history. ?? COMPARISONS: No previous exams. ?? MEASUREMENTS: Right ?Value ? Left ? Value Rt Sapheno-Femoral Junction ?9.73 mm ? Lt Sapheno-Femoral Junction ?11.62 mm Rt Great Saphenous Thigh - Proximal ?8.84 mm ? Lt Great Saphenous Thigh - Proximal ?10.83 mm Rt Great Saphenous Knee ?5.83 mm ? Lt Great Saphenous Knee ?8.34 mm Rt Great Saphenous Calf - Proximal ? 1.91 mm ? Lt Great Saphenous Calf - Proximal ? 4.50 mm Rt Sapheno-Popliteal Junction ?2.29 mm ? Lt Sapheno-Popliteal Junction ?3.69 mm Rt Small Saphenous Proximal ?2.64 mm ? Lt Small Saphenous Proximal ?2.32 mm Rt Small Saphenous Mid ? 2.26 mm ? Lt Small Saphenous Mid ? 2.32 mm Rt Anterior Accessory Proximal ? 2.59 mm ? Lt Anterior Accessory Proximal ? mm Rt Anterior Accessory Mid ?mm ?Lt Anterior Accessory Mid ?mm Rt CFV Reflux Time ? 0.00 sec ?Lt CFV Reflux Time ? 0.00 sec Rt SFJ Reflux Time ? 6.02 sec ?Lt SFJ Reflux Time ? 7.20 sec Rt GSV Thigh Reflux Time ? 1.42 sec ?Lt GSV Thigh Reflux Time ? 0.96 sec Rt FV Mid Reflux Time ?0.00 sec ?Lt FV Mid Reflux Time ?0.00 sec Rt GSV Knee Reflux Time ?7.12 sec ?Lt GSV Knee Reflux Time ?3.80 sec Rt GSV Calf Prx Reflux ? 0.00 sec ?Lt GSV Calf Prx Reflux ? 1.18 sec Rt Popliteal Reflux Time ? 0.00 sec ?Lt Popliteal Reflux Time ? 0.00 sec Rt SPJ Reflux Time ? 0.00 sec ?Lt SPJ Reflux Time ? 0.00 sec Rt SSV Prx Reflux ?0.00 sec ?Lt SSV Prx Reflux ?0.00 sec Rt SSV Mid Reflux ?0.00 sec ?Lt SSV Mid Reflux ?0.00 sec Rt AAGSV Reflux Time ?0.53 sec Right ?Value ? Left ? Value - ?? FINDINGS: Patient positioning: Reflux testing is performed in steep reverse Trendelenburg position. Right: The common femoral, femoral, popliteal, and calf veins were evaluated with compression maneuvers. No evidence of deep vein thrombus by duplex. No evidence of superficial vein thrombus on the right. On the right venous reflux noted in sapheno-femoral junction, proximal great saphenous vein, anterior accessory branch of GSV and great saphenous vein at the knee. Cardiovascular Radiologic Technologist vein noted at distal calf, diameter 2.0 mm, 0.49 second reflux, also at mid calf, diameter 4.1 mm, 3.41 seconds reflux. Large branches coming off great saphenous vein noted at mid thigh and below knee. Mid thigh branch diameter 8.6 mm, 5.0 seconds reflux. Left: The common femoral, femoral, popliteal, and calf veins were evaluated with compression maneuvers. No evidence of deep vein thrombus by duplex. No evidence of superficial vein thrombus on the left. On the left venous reflux noted in sapheno-femoral junction, proximal great saphenous vein, great saphenous vein at the knee and great saphenous vein below the knee (or calf). Cardiovascular Radiologic Technologist vein noted at distal calf, diameter 2.6 mm, 1.1 seconds reflux, also at mid calf with diameter 5.7 mm, 0.83 second reflux. Large great saphenous branches noted below the knee. ?? CONCLUSIONS: Right GSV: Hemodynamically significant reflux in the right saphenofemoral junction, great saphenous vein in the thigh and great saphenous vein at the knee. Left GSV: Hemodynamically significant reflux in the left saphenofemoral junction, great saphenous vein in the thigh, great saphenous vein at the knee and great saphenous vein in the calf. ?? ATTESTATION: I have reviewed and interpreted the pertinent images and measurements of this study. I attest to the conclusions in the final report that is provided above. Electronically Signed By: Radha Coronado MD [facility] 09/06/2024 8:29:18 AM MARKETING SEGMENT MANAGER Procedure Note Radha Coronado MD - 09/06/2024 Vascular & Vein Surgery [address] [facility] [place] [address] Lower Extremity Venous Reflux Duplex Report Patient Name: MO CANCINO L : 1980 (44y 2m) Study Date: 09/05/2024 9:11:29 AM Gender: M School Bus Driver/Teacher Assistant: Location: [facility] Ref Provider: RADHA CORONADO Quality: Adequate Order Provider: RADHA CORONADO PROCEDURES: Vascular Report: Lower extremity venous valvular insufficiency or reflux evaluation isperformed with manual augmentation. Veins evaluated are sapheno-femoral junction, great saphenous, commonfemoral, femoral, profunda femoral, popliteal, sapheno-popliteal and small saphenous veinsbilaterally. Criteria for superficial vein reflux is retrograde blood flow greater than0.5 seconds in the standing position. INDICATIONS: Left > Right varicose veins. HISTORY: No past pertinent medical history. COMPARISONS: No previous exams. MEASUREMENTS: Right Value LeftValue Rt Sapheno-Femoral Junction 9.73 mm Lt Sapheno-FemoralJunction 11.62 mm Rt Great Saphenous Thigh - Proximal 8.84 mm Lt Great SaphenousThigh - Proximal 10.83 mm Rt Great Saphenous Knee 5.83 mm Lt Great Saphenous Knee8.34 mm Rt Great Saphenous Calf - Proximal 1.91 mm Lt Great Saphenous Calf- Proximal 4.50 mm Rt Sapheno-Popliteal Junction 2.29 mm Lt Sapheno-PoplitealJunction 3.69 mm Rt Small Saphenous Proximal 2.64 mm Lt Small SaphenousProximal 2.32 mm Rt Small Saphenous Mid 2.26 mm Lt Small Saphenous Mid2.32 mm Rt Anterior Accessory Proximal 2.59 mm Lt Anterior AccessoryProximal mm Rt Anterior Accessory Mid mm Lt Anterior AccessoryMid mm Rt CFV Reflux Time 0.00 sec Lt CFV Reflux Time0.00 sec Rt SFJ Reflux Time 6.02 sec Lt SFJ Reflux Time7.20 sec Rt GSV Thigh Reflux Time 1.42 sec Lt GSV Thigh RefluxTime 0.96 sec Rt FV Mid Reflux Time 0.00 sec Lt FV Mid Reflux Time0.00 sec Rt GSV Knee Reflux Time 7.12 sec Lt GSV Knee Reflux Time3.80 sec Rt GSV Calf Prx Reflux 0.00 sec Lt GSV Calf Prx Reflux1.18 sec Rt Popliteal Reflux Time 0.00 sec Lt Popliteal RefluxTime 0.00 sec Rt SPJ Reflux Time 0.00 sec Lt SPJ Reflux Time0.00 sec Rt SSV Prx Reflux 0.00 sec Lt SSV Prx Reflux0.00 sec Rt SSV Mid Reflux 0.00 sec Lt SSV Mid Reflux0.00 sec Rt AAGSV Reflux Time0.53 sec Right Value LeftValue - FINDINGS: Patient positioning: Reflux testing is performed in steep reverse Trendelenburg position. Right: The common femoral, femoral, popliteal, and calf veins were evaluated withcompression maneuvers. No evidence of deep vein thrombus by duplex. No evidence ofsuperficial vein thrombus on the right. On the right venous reflux noted in sapheno- femoraljunction, proximal great saphenous vein, anterior accessory branch of GSV and greatsaphenous vein at the knee. Cardiovascular Radiologic Technologist vein noted at distal calf, diameter 2.0 mm, 0.49second reflux, also at mid calf, diameter 4.1 mm, 3.41 seconds reflux. Large branchescoming off great saphenous vein noted at mid thigh and below knee. Mid thigh branchdiameter 8.6 mm, 5.0 seconds reflux. Left: The common femoral, femoral, popliteal, and calf veins were evaluated withcompression maneuvers. No evidence of deep vein thrombus by duplex. No evidence ofsuperficial vein thrombus on the left. On the left venous reflux noted in sapheno- femoraljunction, proximal great saphenous vein, great saphenous vein at the knee and greatsaphenous vein below the knee (or calf). Cardiovascular Radiologic Technologist vein noted at distal calf, diameter2.6 mm, 1.1 seconds reflux, also at mid calf with diameter 5.7 mm, 0.83 second reflux.Large great saphenous branches noted below the knee. CONCLUSIONS: Right GSV: Hemodynamically significant reflux in the right saphenofemoraljunction, great saphenous vein in the thigh and great saphenous vein at the knee. Left GSV: Hemodynamically significant reflux in the left saphenofemoraljunction, great saphenous vein in the thigh, great saphenous vein at the knee and greatsaphenous vein in the calf. ATTESTATION: I have reviewed and interpreted the pertinent images and measurements ofthis study. I attest to the conclusions in the final report that is provided above. Electronically Signed By: Radha Coronado MD [facility] 09/06/2024 8:29:18 AM MARKETING SEGMENT MANAGER Radha Coronado MD [facility] PROCEDURES Final Result from Last 3 Months Insurance [facility] Care Teams Meal Temperer Relationship Specialty Start Date End Date Cheko Chapin DO [address] [facility] [address] [place] [address] PCP - General Internal Medicine 08/14/24
--- OUTSIDE RECORDS SUMMARY | 2024-10-12 20:59 | XMS_ITS | Referral Summary ---
Author Organization [facility] Address [address] [place] [phone] Care Team Providers Care Wheel Aligner Name Role Phone Cheko Chapin DO Primary Care Provider [phone] Encounters Date Type Department Care Team Description 10/02/2024 Documentation [facility] [address] [place] [phone] Smitha Wilde, RN 09/29/2024 Orders Only [facility] [address] [place] [address] [place] [phone] Radha Coronado MD Varicose veins of leg with pain, left (Primary Dx); Varicose veins of leg with pain, right; Varicose veins of both lower extremities with pain 09/29/2024 Telephone [facility] [address] [place] [phone] Smitha Wilde, RN 09/27/2024 Documentation [facility] [address] [place] [phone] Smitha Wilde, RN 09/27/2024 9:15 AM BALLISTIC TECHNICIAN Office Visit [facility] at [address] [place] [address] Radha Coronado MD Varicose veins of both lower extremities with pain (Primary Dx); Primary hypertension 09/05/2024 9:00 AM BALLISTIC TECHNICIAN Ancillary Procedure [facility] at [address] [place] [phone] Symptomatic varicose veins, bilateral 08/21/2024 Orders Only [facility] [address] [place] [phone] Radha Coronado MD Symptomatic varicose veins, bilateral (Primary Dx) 08/21/2024 2:15 PM BALLISTIC TECHNICIAN Office Visit [facility] [address] [place] [phone] Corinna Billy NP Varicose veins of both lower extremities with pain (Primary Dx); Primary hypertension from Last 3 Months Allergies No known active allergies Medications amLODIPine (NORVASC) 10 mg tablet 1 tablet (10 mg total) 07/22/2024 Active losartan (COZAAR) 100 mg tablet 1 tablet (100 mg total) 2024 Active Active Problems Problem Noted Date Diagnosed Date Varicose veins of both lower extremities 024 Assessment & Plan (09/27/2024 9:56 AM BALLISTIC TECHNICIAN): 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 On exam these varicosities are quite large and symptomatic. Risks benefits alternatives to staged left GSV ablation and stab phlebectomies followed by the right lower extremity were discussed. Risks including bleeding, infection, DVT/PE, thermal injury, need further surgery. He wished proceed. Assessment & Plan (08/22/2024 9:51 AM BALLISTIC TECHNICIAN): Large bulky varicosities bilaterally that are symptomatic [...] 08/22/2024 Assessment & Plan (09/27/2024 9:58 AM BALLISTIC TECHNICIAN): Stable continue amlodipine Social History Tobacco Use Types Packs/Day Years Used Date Smoking Tobacco: Unknown Tobacco Cessation:Counseling Given: Not Answered Sex and Gender Information Value Date Recorded Sex Assigned at Not on file Legal Sex Male 9:46 AM BALLISTIC TECHNICIAN Gender Identity Not on file Sexual Orientation Not on file Last Filed Vital Signs Vital Sign Reading Time Taken Comments Blood Pressure 118/85 09/27/2024 9:22 AM BALLISTIC TECHNICIAN Pulse 77 09/27/2024 9:22 AM BALLISTIC TECHNICIAN Temperature - - Respiratory Rate - - Oxygen Saturation 98% 09/27/2024 9:22 AM BALLISTIC TECHNICIAN Inhaled Oxygen Concentration - - Weight 102.1 kg (225 lb) 09/27/2024 9:22 AM BALLISTIC TECHNICIAN Height 188 cm (6' 2 ) 09/27/2024 9:22 AM BALLISTIC TECHNICIAN Body Mass Index 28.89 09/27/2024 9:22 AM BALLISTIC TECHNICIAN Plan of Treatment Not on file Procedures Procedure Name Priority Date/Time Associated Diagnosis Comments US VENOUS REFLUX BILATERAL Routine 09/05/2024 10:58 AM BALLISTIC TECHNICIAN Symptomatic varicose veins, bilateral from Last 3 Months Results * US Venous Reflux Bilateral (09/05/2024 10:58 AM BALLISTIC TECHNICIAN) Anatomical Region Laterality Modality Vascular Bilateral Ultrasound 09/05/2024 9:11 AM BALLISTIC TECHNICIAN Narrative 09/06/2024 8:29 AM BALLISTIC TECHNICIAN [facility] [address] [place] [address] Lower Extremity Venous Reflux Duplex Report Patient Name: MO CANCINO L : 1980 (44y 2m) Study Date: 09/05/2024 9:11:29 AM Gender: M Director Of Residence Life: Location: [facility] Ref Provider: RADHA CORONADO ?Quality: [...] and great saphenous vein at the knee. Servicing Rep vein noted at distal calf, diameter 2.0 [...] saphenous vein below the knee (or calf). Servicing Rep vein noted at distal calf, diameter 2.6 [...] above. Electronically Signed By: Radha Coronado MD B 09/06/2024 8:29:18 AM BALLISTIC TECHNICIAN Procedure Note Radha Coronado MD - 09/06/2024 [facility] Surgery [address] [facility] [place] [address] Lower Extremity Venous Reflux Duplex Report Patient Name: MO CANCINO L : 1980 (44y 2m) Study Date: 09/05/2024 9:11:29 AM Gender: M Director Of Residence Life: TALIA Location: [facility] Ref Provider: RADHA CORONADO Quality: [...] GSV and greatsaphenous vein at the knee. Servicing Rep vein noted at distal calf, diameter 2.0 [...] greatsaphenous vein below the knee (or calf). Servicing Rep vein noted at distal calf, diameter2.6 mm, [...] above. Electronically Signed By: Radha Coronado MD B 09/06/2024 8:29:18 AM BALLISTIC TECHNICIAN Radha Coronado MD [facility] PROCEDURES Final Result from Last 3 Months Insurance [facility] Care Teams Wheel Aligner Relationship Specialty Start Date End Date Cheko Chapin DO [address] [facility] [place] [address] [place] [address] PCP - General Internal Medicine 08/14/24
== END 2024-10-11 13:14 | disposition home or self-care (01) ==
PROVIDERS: PCP Nurse Practitioner; Visit Provider Internal Medicine Gastroenterology
PROC: 0DJD8ZZ Inspection of Lower Intestinal Tract, Via Natural or Artificial Opening Endoscopic (ICD-10-PCS; CPT 45378; principal; 2024-10-11 13:30)
DX: Z12.11 Encounter for screening for malignant neoplasm of colon (principal); I10 Essential (primary) hypertension; Z98.890 Other specified postprocedural states; Z90.49 Acquired absence of other specified parts of digestive tract; Z98.84 Bariatric surgery status
CPT/HCPCS: 45378; J2704; J7120